=== PATIENT | male | born 1985 | race Caucasian/White ===

== ENCOUNTER 2022-03-28 09:22 | Outpatient (CLI) | payer OTHER ==
[2022-03-28 10:05] LABS: ALT (SGPT) 57 U/L (8-55); AST (SGOT) 31 U/L (5-34); Albumin 4.4 g/dL (3.5-5.0); Alkaline Phosphatase 57 U/L (40-110); Anion Gap 12 mmol/L (10-20); BUN (Urea Nitrogen) 12 mg/dL (8.9-20.6); Bilirubin, Total 0.5 mg/dL (0.2-1.2); Calc. Creatinine Clearance 0 mL/min (70-130); Calcium 9.3 mg/dL (7.8-10.44); Carbon Dioxide 26 mmol/L (22-29); Cardiac Risk 3.9 (Less than 4.5); Chloride 104 mmol/L (98-107); Cholesterol 227 mg/dl (< 200 Desired); Estimated GFR 114; Globulin 3.6 g/dL (2.4-3.5); Glucose 112 mg/dL (70-105); HDL Cholesterol 58 mg/dL (>60 Neg Risk); LDL Cholesterol, Calculated 147 mg/dL; Triglycerides 110 mg/dL (Less than 150)
[2022-03-28 10:06] LABS: Hemoglobin 16.3 g/dL (14.0-18.0); Mean Corpuscular HGB CONC 33.4 g/dL (32.0-36.0); Mean Corpuscular Hemoglobin 31.1 pg (27.0-31.0); Mean Corpuscular Volume 93.4 fl (78.0-98.0); Mean Platelet Volume 9.4 fL (7.4-10.4); Platelet Count 270 10x3/uL (130-400); RBC Distribution Width 11.7 % (11.5-14.5); Red Blood Cell (RBC) Count 5.23 mill/uL (4.70-6.10); White Blood Cell (WBC) Count 8.5 10x3/uL (4.8-10.8)
[2022-03-28 10:28] LABS: Potassium 4.1 mmol/L (3.5-5.1); Sodium 138 mmol/L (136-145)
== END 2022-03-28 09:23 | disposition home or self-care (01) ==
LOC: BURLAB 09:22
PROVIDERS: ATTEND Family Medicine
DX: R03.0 Elevated blood-pressure reading, without diagnosis of hypertension (principal)
CPT/HCPCS: 36415; 80053; 80061; 84443; 85027

== ENCOUNTER 2023-05-23 11:38 | Emergency (ER) | payer SELFPAY ==
[~2023-05-23 11:38] MED LIST: Iopamidol 370 76% 100 ML VIAL ONE
[2023-05-23 12:32] LABS: #Basophils 0.1 thou/uL (0.0-0.2); #Eosinphils 0.1 thou/uL (0.0-0.7); #Lymphocytes 1.9 thou/uL (1.20-3.40); #Monocytes 0.9 thou/uL (0.11-0.59); %Eosinophils 0.8 % (0.0-10.0); %Lymphocytes 19.3 % (21.0-51.0); %Monocytes 8.9 % (0.0-10.0); %Neutrophils 70.1 % (42.0-75.0); Hematocrit 46.4 % (42.0-52.0); Hemoglobin 15.6 g/dL (14.0-18.0); Mean Corpuscular HGB CONC 33.7 g/dL (32.0-36.0); Mean Corpuscular Hemoglobin 29.8 pg (27.0-31.0); Mean Corpuscular Volume 88.5 fl (78.0-98.0); Platelet Count 244 10x3/uL (130-400); RBC Distribution Width 10.7 % (11.5-14.5); Red Blood Cell (RBC) Count 5.24 mill/uL (4.70-6.10)
[2023-05-23 12:46] LABS: ALT (SGPT) 33 U/L (8-55); AST (SGOT) 17 U/L (5-34); Albumin 4.5 g/dL (3.5-5.0); Alkaline Phosphatase 56 U/L (40-110); Anion Gap 16 mmol/L (10-20); BUN (Urea Nitrogen) 7 mg/dL (8.9-20.6); Bilirubin, Total 0.5 mg/dL (0.2-1.2); Calc. Creatinine Clearance 0 mL/min (70-130); Calcium 9.3 mg/dL (7.8-10.44); Carbon Dioxide 20 mmol/L (22-29); Chloride 105 mmol/L (98-107); Estimated GFR 115; Globulin 3.5 g/dL (2.4-3.5); Glucose 95 mg/dL (70-105); Potassium 3.7 mmol/L (3.5-5.1); Sodium 137 mmol/L (136-145)
[2023-05-23 12:48] LABS: Troponin I Less than 0.010 ng/mL (< 0.028)
[2023-05-23] MEDS ORDERED: cefTRIAXone (ROCEPHIN) 1 GM VIAL ONE (14:12)
[2023-05-23] MEDS ORDERED: Sodium Chloride 0.9% 100 ML ONE (14:13)
[2023-05-23] MEDS ORDERED: Morphine 2 MG/ML VIAL ONE (15:39)
[2023-05-23] MEDS ORDERED: Morphine 4 MG/ML VIAL ONE (15:39)
== END 2023-05-23 16:00 | disposition short-term general hospital (02) ==
LOC: BURERS 11:38
DX: K81.0 Acute cholecystitis (principal); F17.210 Nicotine dependence, cigarettes, uncomplicated
CPT/HCPCS: 36415; 71045; 74177; 80053; 83690; 83880; 84484; 85025; 93005; 96365; 96375; J0696; J2270; J2272; J3490; Q9967